=== PATIENT | female | born 2000 | race Caucasian/White ===

== ENCOUNTER 2024-05-10 03:37 | Emergency (ER) | payer BC ==
[2024-05-10] MEDS: Amoxicillin/Clavulanate K 875-125 MG Tab PO ONE (04:36)
== END 2024-05-10 04:40 | disposition home or self-care (01) ==
LOC: DL.ED 03:37
DX: O99.891 Other specified diseases and conditions complicating pregnancy (principal); O99.513 Diseases of the respiratory system complicating pregnancy, third trimester; H65.192 Other acute nonsuppurative otitis media, left ear; J06.9 Acute upper respiratory infection, unspecified; Z3A.36 36 weeks gestation of pregnancy; Z88.2 Allergy status to sulfonamides
CPT/HCPCS: 99283; A9270-GY